=== PATIENT | female | born 1965 | race Caucasian/White ===

== ENCOUNTER 2019-05-09 06:29 | Emergency (ER) | payer SELFPAY ==
[2019-05-09 07:03] LABS: #Eosinphils 0.1 thou/uL (0.0-0.7); #Lymphocytes 1.4 thou/uL (1.20-3.40); #Monocytes 0.5 thou/uL (0.11-0.59); #Neutrophils 3.3 thou/uL (1.40-6.50); %Basophils 0.9 % (0.0-1.0); %Eosinophils 1.8 % (0.0-10.0); %Lymphocytes 26.1 % (21.0-51.0); %Monocytes 8.8 % (0.0-10.0); %Neutrophils 62.5 % (42.0-75.0); Hemoglobin 13.7 g/dL (12.0-16.0); Mean Corpuscular HGB CONC 33.1 g/dL (32.0-36.0); Mean Corpuscular Hemoglobin 32.4 pg (27.0-31.0); Mean Platelet Volume 8.3 fL (7.4-10.4); Platelet Count 159 thou/uL (130-400); Red Blood Cell (RBC) Count 4.22 mill/uL (4.20-5.40); White Blood Cell (WBC) Count 5.3 thou/uL (4.8-10.8)
[2019-05-09 07:26] LABS: ALT (SGPT) 59 U/L (8-55); AST (SGOT) 68 U/L (5-34); Albumin 3.6 g/dL (3.5-5.0); Alkaline Phosphatase 88 U/L (40-150); Anion Gap 11 mmol/L (10-20); BUN (Urea Nitrogen) 17 mg/dL (9.8-20.1); Bilirubin, Total 0.4 mg/dL (0.2-1.2); Calc. Creatinine Clearance 0 mL/min (70-130); Calcium 8.8 mg/dL (7.8-10.44); Carbon Dioxide 25 mmol/L (22-29); Chloride 107 mmol/L (98-107); Estimated GFR-MDRD 56; Glucose 122 mg/dL (70-105); Lipase 48 U/L (8-78); Potassium 3.7 mmol/L (3.5-5.1); Protein, Total 6.6 g/dL (6.0-8.3); Sodium 139 mmol/L (136-145)
[2019-05-09 07:32] LABS: Bilirubin Negative (Negative); Blood, Urine Negative (Negative); Clarity CLEAR (Clear); Glucose, Urine (Dipstick) Negative (Negative); Leukocyte Trace (Negative); Nitrite Negative (Negative); Protein, Urine (Dipstick) Negative (Neg-Trace); Specific Gravity, Urine 1.011 (1.002-1.036); Urobilinogen 0.2 mg/dL (0.2-1.0)
[2019-05-09 07:34] LABS: Bacteria/HPF Rare-Few HPF (None Seen); Hyaline Casts/LPF 0-3 HYALINE CAST LPF (0-3 Hyaline); RBC/HPF 0-3 HPF (0-3)
[2019-05-09] MEDS ORDERED: Methocarbamol 1 GM in Sodium Chloride 0.9% 250 ML 250 ML IVPB ONE (08:00)
--- NOTE | 2019-05-09 08:29 | CT ---
CT Abdomen Pelvis W Con History: Left lower quadrant pain. Left flank pain. Comparison: CT abdomen and pelvis 2010 Findings: Lung bases are clear. No pericardial effusion. Multiple bilateral nonobstructive renal calculi. Largest calculus superior left renal collecting syst em measures 4 mm. Large calculus inferior right renal collecting system measures 3 mm. Extensive calcified plaque throughout the aortoiliac system without aneurysmal dilatation. The spleen liver and gallbladder and pancreas are all unremarkable. Celiac trunk and superior mesenteric arteries are patent. There is abnormal submucosal edema of the s igmoid colon with thumbprinting. Appendix is not well-visualized. There are also abnormal foci of some mucosal edema within the transv erse colon and ascending colon. Normal proximal small bowel rotation. No hydronephrosis. Adrenal glands are unremarkable. Impression: 1. Extensive submucosal edema and thumbprinting of the sigmoid colon as well as portions of the trans verse colon suggesting multifocal colitis. Follow-up colonoscopy after treatment recommended. 2. Bilateral nonobstructive renal calculi.
[2019-05-09 08:52] LABS: Pregnancy Test - Urine (BHCG) Negative (Negative); Pregu Control Background? CLEAR/WHITE (CLR/WHITE); Pregu Control Bar Appear? YES (CONTROL BAR); Specific Gravity 1.011 (1.002-1.036)
[2019-05-09] MEDS ORDERED: Dicyclomine 20 MG TAB ONE (09:20)
[2019-05-09] MEDS ORDERED: Ketorolac Tromethamine 30 MG/ML VIAL ONE (09:20)
[2019-05-09] MEDS ORDERED: ISOVUE-370 76%-LOCM 1 ML ONE (09:43)
== END 2019-05-09 09:36 | disposition home or self-care (01) ==
LOC: ERS 06:29
DX: M54.5 Low back pain (principal); K52.9 Noninfective gastroenteritis and colitis, unspecified; F17.210 Nicotine dependence, cigarettes, uncomplicated
CPT/HCPCS: 36415; 74177; 80053; 81003; 81015; 81025; 83690; 84484; 85025; 87086; 93005; 96361; 96365; 96375; J1885; J2800; J7050; Q9966

== ENCOUNTER 2019-08-23 14:55 | Emergency (ER) | payer OTHER, SELFPAY ==
[2019-08-23 16:29] LABS: Blood, Urine Large (Negative); Glucose, Urine (Dipstick) Negative (Negative); Leukocyte Negative (Negative); Nitrite Negative (Negative); Protein, Urine (Dipstick) > or equal to 300 mg/dL (Neg-Trace)
[2019-08-23 16:32] LABS: Clarity Turbid (Clear)
[2019-08-23 16:32] LABS: #Eosinphils 0.1 thou/uL (0.0-0.7); #Monocytes 0.4 thou/uL (0.11-0.59); #Neutrophils 2.9 thou/uL (1.40-6.50); %Basophils 0.9 % (0.0-1.0); %Eosinophils 1.5 % (0.0-10.0); %Lymphocytes 21.8 % (21.0-51.0); %Monocytes 9.8 % (0.0-10.0); Hemoglobin 12.3 g/dL (12.0-16.0); Mean Corpuscular HGB CONC 34.4 g/dL (32.0-36.0); Mean Corpuscular Hemoglobin 33.7 pg (27.0-31.0); Mean Corpuscular Volume 97.8 fL (78.0-98.0); Mean Platelet Volume 7.8 fL (7.4-10.4); Platelet Count 212 thou/uL (130-400); RBC Distribution Width 11.5 % (11.5-14.5); Red Blood Cell (RBC) Count 3.64 mill/uL (4.20-5.40); White Blood Cell (WBC) Count 4.4 thou/uL (4.8-10.8)
[2019-08-23 16:39] LABS: Bilirubin Negative (Negative); Urobilinogen 0.2 mg/dL (Less than 2)
[2019-08-23 16:44] LABS: Bacteria/HPF None Seen HPF (None Seen); RBC/HPF Greater than 50 HPF (0-3); Squamous Epithelial 0-3 HPF (0-3); WBC/HPF 0-3 HPF (0-3)
[2019-08-23 16:52] LABS: ALT (SGPT) 34 U/L (8-55); AST (SGOT) 55 U/L (5-34); Albumin 3.6 g/dL (3.5-5.0); Alkaline Phosphatase 70 U/L (40-150); Anion Gap 12 mmol/L (10-20); BUN (Urea Nitrogen) 14 mg/dL (9.8-20.1); Bilirubin, Total 0.5 mg/dL (0.2-1.2); Calc. Creatinine Clearance 0 mL/min (70-130); Calcium 8.6 mg/dL (7.8-10.44); Carbon Dioxide 22 mmol/L (22-29); Chloride 109 mmol/L (98-107); Estimated GFR-MDRD 53; Glucose 104 mg/dL (70-105); Potassium 3.5 mmol/L (3.5-5.1); Protein, Total 6.6 g/dL (6.0-8.3); Sodium 139 mmol/L (136-145)
== END 2019-08-23 17:23 | disposition home or self-care (01) ==
LOC: ERS 14:55
DX: R31.9 Hematuria, unspecified (principal); F15.10 Other stimulant abuse, uncomplicated; F17.210 Nicotine dependence, cigarettes, uncomplicated; F31.9 Bipolar disorder, unspecified
CPT/HCPCS: 36415; 80053; 81003; 81015; 85025; 99281

== ENCOUNTER 2023-03-10 04:58 | Emergency (ER) | payer OTHER, SELFPAY ==
[2023-03-10] MEDS ORDERED: Acetaminophen 500 MG TAB ONE (07:46)
== END 2023-03-10 07:57 ==
LOC: ERS 04:58
DX: Z02.89 Encounter for other administrative examinations (principal); S09.90XA Unspecified injury of head, initial encounter; M06.9 Rheumatoid arthritis, unspecified; F17.210 Nicotine dependence, cigarettes, uncomplicated; I10 Essential (primary) hypertension; W18.00XA Striking against unspecified object with subsequent fall, initial encounter; Y92.149 Unspecified place in prison as the place of occurrence of the external cause
CPT/HCPCS: 70450